=== PATIENT | female | born 1975 | race Caucasian/White ===

== ENCOUNTER → 2018-03-10 08:34 | Outpatient (CLI) | payer BC, SELFPAY ==
[2018-03-12 17:12] LABS: FSH 6.3 mIU/mL (.); LH 12.4 mIU/mL (.)
[2018-03-16 14:02] LABS: Testosterone, Total, LC/MS 39.5 ng/dL (.)
== END ==
PROVIDERS: PCP Nurse Practitioner Family; Visit Provider Nurse Practitioner Family
DX: N95.9 Unspecified menopausal and perimenopausal disorder (principal)
CPT/HCPCS: 36415; 82670; 83001; 83002; 84403

== ENCOUNTER 2019-10-19 08:00 | Outpatient (RCR) | payer BC, SELFPAY | END 2019-11-07 12:46 | disposition home or self-care (01) | LOC: PT.CARL 08:00 | PROVIDERS: PCP Nurse Practitioner Family; Visit Provider Physician Assistant | DX: M54.16 Radiculopathy, lumbar region (principal) | CPT/HCPCS: 97010; 97012; 97014; 97110; 97140; 97163; G0283 ==